=== PATIENT | male | born 1955 | race Caucasian/White ===

== ENCOUNTER 2017-05-30 10:29 | Day surgery (SDC) | payer OTHER ==
[~2017-05-30] VITALS: Ht 175.3 cm; Wt 120.3 kg
[~2017-05-30 10:29] MED LIST: ASPIRIN 81M81 MG/TA2 PO; HCTZ12.5TAB PO; LEXAPRO 10MG10 MG PO; LIPITOR20 MG PO; NORCO 325 MG-51 TAB PO; PROTONIX 40MG T40 MG PO; RAMIPRIL10 MG PO
[2017-05-30 11:02] VITALS: BP 158/85; PULSE 63; TEMP 97.9
[2017-05-30] MEDS ORDERED: VISTARIL 2525 MG/CAP PO (11:40)
[2017-05-30] MEDS ORDERED: ZOLOFT 100MG100 MG PO (11:41)
[2017-05-30] MEDS ORDERED: DESYREL 100MG100 MG PO (11:42)
[2017-05-30] MEDS ORDERED: ZYLOPRIM 300MG300 MG PO (11:43)
[2017-05-30] MEDS ORDERED: ASPIRIN 81M81 MG/TA2 PO (11:44)
[2017-05-30] MEDS ORDERED: HCTZ 25MG TAB25 MG PO (11:45)
[2017-05-30] MEDS ORDERED: ALTACE 5MG5 MG PO (11:48)
[2017-05-30] MEDS ORDERED: PREDNISONE20 MG PO (11:48)
[2017-05-30] MEDS ORDERED: ALEVE 220MG220 MG PO (11:49)
[2017-05-30 13:15] VITALS: BP 123/71; PULSE 69
[2017-05-30 13:30] VITALS: BP 117/79; PULSE 67
[2017-05-30 13:45] VITALS: BP 118/68; PULSE 58
[2017-05-30 14:00] VITALS: BP 118/67; PULSE 56
== END 2017-05-30 14:20 | disposition home or self-care (01) ==
LOC: SDCO 10:29
DX: Z12.11 Encounter for screening for malignant neoplasm of colon (principal); K57.30 Diverticulosis of large intestine without perforation or abscess without bleeding; Z86.010 Personal history of colon polyps; D12.6 Benign neoplasm of colon, unspecified; I10 Essential (primary) hypertension; E78.00 Pure hypercholesterolemia, unspecified; F41.8 Other specified anxiety disorders; F32.9 Major depressive disorder, single episode, unspecified; K92.1 Melena; Z83.71 Family history of colonic polyps; Z87.891 Personal history of nicotine dependence
CPT/HCPCS: J2250; J2405; J3010

== ENCOUNTER → 2018-01-23 | Outpatient (CLI) | payer OTHER ==
[~2018-01-23] MED LIST changes: +ALEVE 220MG220 MG PO; +ALTACE 5MG5 MG PO; +DESYREL 100MG100 MG PO; +HCTZ 25MG TAB25 MG PO; +PREDNISONE20 MG PO; +VISTARIL 2525 MG/CAP PO; +ZOLOFT 100MG100 MG PO; +ZYLOPRIM 300MG300 MG PO
== END ==
LOC: COL.RAD 08:08
DX: N20.0 Calculus of kidney (principal); R19.7 Diarrhea, unspecified

== ENCOUNTER → 2018-11-12 | Outpatient (CLI) | payer OTHER | LOC: COL.RAD 12:16 | DX: R25.1 Tremor, unspecified (principal) ==

== ENCOUNTER → 2018-12-21 | Outpatient (CLI) | payer OTHER | LOC: COL.RAD 13:39 | DX: M48.07 Spinal stenosis, lumbosacral region (principal); M12.88 Other specific arthropathies, not elsewhere classified, other specified site ==

== ENCOUNTER → 2019-02-18 | Outpatient (CLI) | payer OTHER | LOC: MHCPAIN 14:34 | DX: G89.29 Other chronic pain (principal); M47.817 Spondylosis without myelopathy or radiculopathy, lumbosacral region; M54.16 Radiculopathy, lumbar region; M53.3 Sacrococcygeal disorders, not elsewhere classified; M48.061 Spinal stenosis, lumbar region without neurogenic claudication | CPT/HCPCS: G0463 ==

== ENCOUNTER → 2019-03-01 | Outpatient (CLI) | payer OTHER | LOC: MHCPAIN 10:45 | DX: M47.817 Spondylosis without myelopathy or radiculopathy, lumbosacral region (principal); M54.16 Radiculopathy, lumbar region | CPT/HCPCS: A9585; J1100 ==

== ENCOUNTER → 2019-03-16 | Outpatient (CLI) | payer OTHER | LOC: MHCPAIN 14:59 | DX: G89.29 Other chronic pain (principal); M47.817 Spondylosis without myelopathy or radiculopathy, lumbosacral region; M54.16 Radiculopathy, lumbar region; M53.3 Sacrococcygeal disorders, not elsewhere classified; M48.061 Spinal stenosis, lumbar region without neurogenic claudication | CPT/HCPCS: G0463 ==

== ENCOUNTER → 2019-03-18 | Outpatient (CLI) | payer OTHER | LOC: MHCPAIN 13:52 | DX: M47.817 Spondylosis without myelopathy or radiculopathy, lumbosacral region (principal); M54.16 Radiculopathy, lumbar region | CPT/HCPCS: A9585; J1100 ==

== ENCOUNTER → 2019-03-31 | Outpatient (CLI) | payer OTHER | LOC: MHCPAIN 12:54 | DX: G89.29 Other chronic pain (principal); M47.817 Spondylosis without myelopathy or radiculopathy, lumbosacral region; M54.16 Radiculopathy, lumbar region; M53.3 Sacrococcygeal disorders, not elsewhere classified | CPT/HCPCS: G0463 ==

== ENCOUNTER → 2019-04-01 | Outpatient (CLI) | payer OTHER | LOC: MHCPAIN 14:32 | DX: M47.817 Spondylosis without myelopathy or radiculopathy, lumbosacral region (principal); M54.16 Radiculopathy, lumbar region | CPT/HCPCS: A9585; J1100; Q9967 ==

== ENCOUNTER → 2019-04-14 | Outpatient (CLI) | payer OTHER | LOC: MHCPAIN 14:55 | DX: G89.29 Other chronic pain (principal); M47.817 Spondylosis without myelopathy or radiculopathy, lumbosacral region; M54.16 Radiculopathy, lumbar region; M53.3 Sacrococcygeal disorders, not elsewhere classified | CPT/HCPCS: G0463 ==

== ENCOUNTER → 2019-04-21 | Outpatient (CLI) | payer OTHER | LOC: COL.RAD 16:37 | DX: M47.26 Other spondylosis with radiculopathy, lumbar region (principal); M51.16 Intervertebral disc disorders with radiculopathy, lumbar region ==

== ENCOUNTER 2022-05-31 07:05 | Day surgery (SDC) | payer MEDICARE, OTHER ==
[~2022-05-31] VITALS: Ht 175.3 cm; Wt 120.1 kg
[2022-05-31] MEDS ORDERED: LEVBID0.375 MG PO (07:25)
[2022-05-31] MEDS ORDERED: PERIACTIN 4MG TA4 MG PO (07:26)
[2022-05-31] MEDS ORDERED: COLESTID 1GM1 G PO (07:26)
[2022-05-31] MEDS ORDERED: LAMICTAL200 MG PO (07:27)
[2022-05-31] MEDS ORDERED: ZYRTEC 10MG10 MG PO (07:27)
[2022-05-31 07:28] VITALS: BP 149/67; PULSE 65; TEMP 98.1
[2022-05-31] MEDS ORDERED: SYNTHROID 0.0.025 MG PO (07:28)
[2022-05-31 08:20] VITALS: BP 152/83; PULSE 59; TEMP 98
--- NOTE | 2022-05-31 08:20 | NUR ---
PATIENT RETURNS TO ROOM 4 VIA CART. ASSIST X 1 TO CHAIR. VITAL SIGNS WNL. AT BEDSIDE. DENIES ANY PAIN OR NAUSEA. DOCTOR AT BEDSIDE. WILL CONTINUE TO MONITOR.
[2022-05-31 08:35] VITALS: BP 149/85; PULSE 60
--- NOTE | 2022-05-31 08:35 | NUR ---
PATIENT IS AWAKE AND ORIENTED. TOLERATED JUICE AND MUFFIN WELL. IV REMOVED. DOCTOR AT BEDSIDE. VITAL SIGNS WNL, WILL CONTINUE TO MONITOR.
[2022-05-31 08:50] VITALS: BP 161/83; PULSE 57
--- NOTE | 2022-05-31 08:50 | NUR ---
PATIENT IS READY FOR DISCHARGE. INSTRUCTIONS REVIEWED WITH PATIENT AND . LAST SET OF VITALS WNL. WILL DISCHARGE ONCE HE IS DRESSED AND READY.
== END 2022-05-31 08:55 | disposition home or self-care (01) ==
LOC: SDCO 07:05
DX: Z12.11 Encounter for screening for malignant neoplasm of colon (principal); K63.5 Polyp of colon; K57.30 Diverticulosis of large intestine without perforation or abscess without bleeding; E66.9 Obesity, unspecified
CPT/HCPCS: J2704; J7030